=== PATIENT | female | born 1995 | race African-American/Black ===

== ENCOUNTER 2022-07-20 09:31 | Observation (INO) | payer MEDICAID ==
[~2022-07-20] VITALS: Ht 162.6 cm; Wt 136.1 kg
[2022-07-20] MEDS ORDERED: ONDANSETRON HCL 4MG/2ML INJ IV ONE (10:30)
[2022-07-20] MEDS ORDERED: LACTATED RINGERS 1,000 ML IV SCH (10:30)
[2022-07-20] MEDS ORDERED: ONDANSETRON HCL 4MG/2ML INJ IV SCH (10:53)
[2022-07-20 10:58] LABS: CLARITY URINE CLEAR (CLEAR); COLOR URINE YELLOW (YELLOW); KETONES URINE NEGATIVE (NEGATIVE); LEUKOCYTE ESTERASE URINE NEGATIVE (NEGATIVE); NITRITE URINE NEGATIVE (NEGATIVE); OCCULT BLOOD URINE NEGATIVE (NEGATIVE); PROTEIN URINE NEGATIVE (NEGATIVE); SPECIFIC GRAVITY URINE 1.018 (1.005-1.030); UROBILINOGEN URINE 0.2 E.U./dL (0.2-1.0)
== END 2022-07-20 14:20 | disposition home or self-care (01) ==
LOC: 8 EST A/PP 09:31
PROVIDERS: ADMIT Obstetrics & Gynecology; ATTEND Obstetrics & Gynecology
DX: O26.852 Spotting complicating pregnancy, second trimester (principal); O21.2 Late vomiting of pregnancy; O26.892 Other specified pregnancy related conditions, second trimester; R19.7 Diarrhea, unspecified; Z3A.27 27 weeks gestation of pregnancy
CPT/HCPCS: 36415; 59025; 76805; 81003; 86850; 86900; 86901; 96361; 96374; G0378; J2405; 96360; 99281; J7120; G0379